=== PATIENT | female | born 1970 | race Caucasian/White ===

== ENCOUNTER 2018-05-17 06:56 | Emergency (ER) | payer OTHER ==
[2018-05-17] MEDS ORDERED: Sodium Chloride 0.9% 1,000 ML ONE (07:19)
[2018-05-17] MEDS ORDERED: Ketorolac Tromethamine 30 MG/ML VIAL ONE (07:19)
[2018-05-17] MEDS ORDERED: Tamsulosin HCl 0.4 MG CAP ONE (07:19)
[2018-05-17 07:32] LABS: Bilirubin Negative (Negative); Blood, Urine Moderate (Negative); Clarity Clear (Clear); Glucose, Urine (Dipstick) Negative (Negative); Leukocyte Moderate (Negative); Nitrite Positive (Negative); Protein, Urine (Dipstick) Trace mg/dL (Neg-Trace); Urobilinogen 0.2 mg/dL (0.2-1.0); pH, Urine 5.5 (5.0-9.0)
[2018-05-17 07:38] LABS: Bacteria/HPF 1+ HPF (None Seen)
[2018-05-17 07:39] LABS: Pregnancy Test - Urine (BHCG) Negative (Negative); Pregu Control Background? CLEAR/WHITE (CLR/WHITE); Pregu Control Bar Appear? YES (CONTROL BAR)
[2018-05-17] MEDS ORDERED: Ondansetron PF 4 MG/2 ML Vial ONE (07:42)
[2018-05-17] MEDS ORDERED: Morphine 4 MG/ML VIAL ONE (07:42)
[2018-05-17] MEDS ORDERED: Sodium Chloride 0.9% 100 ML ONE (07:43)
[2018-05-17] MEDS ORDERED: cefTRIAXone\\ROCEPHIN 1 GM VIAL ONE (07:43)
[2018-05-17 08:15] LABS: Anion Gap 14 mmol/L (10-20); BUN (Urea Nitrogen) 10 mg/dL (7.0-18.7); Calc. Creatinine Clearance 0 mL/min (70-130); Calcium 8.6 mg/dL (7.8-10.44); Carbon Dioxide 20 mmol/L (22-29); Chloride 111 mmol/L (98-107); Estimated GFR-MDRD 81; Glucose 106 mg/dL (70-105); Potassium 4.1 mmol/L (3.5-5.1); Sodium 141 mmol/L (136-145)
--- NOTE | 2018-05-17 09:38 | CT ---
CT ABDOMEN AND PELVIS WITHOUT CONTRAST: Date: 05/17/18 COMPARISON: None. HISTORY: Low back pain radiating to the left inguinal region for 3 days. TECHNIQUE: Multiple contiguous axial images were obtained in a CT of the abdomen and pelvis without contrast. Co brent reformats were performed. FINDINGS: There is a 5.0 mm calcification in the proximal left ureter with mild left hydronephrosis. There are nonobstructing calcifications in the bilateral kidneys measuring up to 4.0 mm in size. No right-sided hydronephrosis is seen. There is a 3.3 cm left adrenal mass with mean Hounsfield unit value of -7. This is consistent with a fat-containing adrenal adenoma. The liver, gallbladder, right adrenal gland, spleen, and pancreas are unremarkable. An IUD is seen within the uterus. A mass-like structure along the left pelvic side wall measuring 4.2 cm in size may represent the patient's left ovary or an exophytic fibroid. No abdominal or pelvic ly mphadenopathy are seen. The large and small bowel are unremarkable. The appendix is normal. The osseous structures, visualized inferior thorax, and abdominal wall soft tissues are unremarkable. IMPRESSION: 1. Proximal left ureteral calcification with mild left hydronephrosis. 2. Bilateral nonobstructing renal calcifications. 3. Left adrenal mass. POS: JOSE
== END 2018-05-17 09:00 | disposition home or self-care (01) ==
LOC: MADERS 06:56
DX: N13.2 Hydronephrosis with renal and ureteral calculous obstruction (principal); E03.9 Hypothyroidism, unspecified; F17.210 Nicotine dependence, cigarettes, uncomplicated; Z79.899 Other long term (current) drug therapy
CPT/HCPCS: 74176; 80048; 81003; 81015; 81025; 96361; 96365; 96375; J0696; J1885; J2270; J2405; J7050